=== PATIENT | female | born 1955 | race Caucasian/White ===

== ENCOUNTER 2023-07-12 07:16 | Observation (INO) ==
[~2023-07-12 07:16] MED LIST: Buffered Lidocaine 1% SYRIN 1 ml INTRADERM ONE; Metoclopramide 5 MG/ML VIAL (10 mg) IV PRN; Naloxone 0.4 mg VIAL 0.4 mg/ml 1 ml VIAL IV PRN; Ondansetron 4 mg VIAL 2 MG/ML 2 ml VIAL IV PRN
[2023-07-12 07:51] LABS: Rapid COVID-19 Molecular Undetected (Undetected)
[2023-07-12] MEDS ORDERED: KETAMINE HCL 10 MG/ML 20 ml VIAL (200 MG) ONE (07:57)
[2023-07-12] MEDS ORDERED: Lidocaine 2% PF 5 ML VIAL ONE (07:57)
[2023-07-12] MEDS ORDERED: Propofol 10 MG/ML 20 ML BTL ONE ×2 (07:57→11:51)
[2023-07-12] MEDS ORDERED: Tranexamic Acid 1 GM/100ML BAG 2,000 MG/200 ML BAG IV ONE (08:11)
[2023-07-12] MEDS ORDERED: ceFAZolin 2 GM in NS PREMIX 2 GM/100 ML BAG IVPB ONE (08:11)
[2023-07-12] MEDS: Lactated Ringers 1000 ml BAG 1,000 ML IV SCH ×3 (08:19→15:21)
[2023-07-12] MEDS ORDERED: ROPIVACAINE 5 MG/ML 30 ML BTL (0.5%) ONE ×2 (08:24→08:28)
[2023-07-12] MEDS ORDERED: Dexamethasone IV 4 MG/ML VIAL 1 ml VIAL ONE (08:28)
[2023-07-12] MEDS ORDERED: Midazolam 2 mg/2 ml VIAL 1 mg/ml 2 ml VIAL (2 mg) ONE ×2 (08:28→10:22)
[2023-07-12] MEDS ORDERED: fentaNYL 100 mcg/2 ml 50 MCG/ML VIAL ONE ×2 (08:28→14:23)
[2023-07-12] MEDS ORDERED: Bupivacaine-MPF SPINAL 7.5 MG/ML - 2ML AMP ONE (10:48)
[2023-07-12] MEDS ORDERED: Ondansetron 4 mg VIAL 2 MG/ML 2 ml VIAL ONE (11:03)
[2023-07-12] MEDS ORDERED: Lactulose 30 ml UDC PO PRN (12:04)
[2023-07-12] MEDS ORDERED: Morphine 2 MG/ML SYRINGE IV PRN (12:04)
[2023-07-12] MEDS ORDERED: Magnesium Hydroxide LIQ 30 ML UDC PO PRN (12:04)
[2023-07-12] MEDS ORDERED: Scopolamine 1 mg/72hr PATCH TRANSDERM PRN (12:13)
[2023-07-12] MEDS ORDERED: Fluticasone NASAL SPRAY 50MCG 16 gm SPRAY BTL BOTH NARES PRN (13:35)
[2023-07-12] MEDS: fentaNYL 100 mcg/2 ml 50 MCG/ML VIAL IV PRN ×2 (14:24→14:30)
[2023-07-12] MEDS: ceFAZolin 1 GM ADVAN 1 GM in NS 0.9% 50 ML 50 ML IVPB SCH (20:38)
[2023-07-12] MEDS: Magnesium Hydroxide LIQ 30 ML UDC PO SCH (20:40)
[2023-07-13] MEDS: Lactated Ringers 1000 ml BAG 1,000 ML IV SCH (01:34)
[2023-07-13] MEDS: ceFAZolin 1 GM ADVAN 1 GM in NS 0.9% 50 ML 50 ML IVPB SCH ×2 (04:14→11:31)
[2023-07-13 07:48] LABS: Platelet Count 246 10^3/uL (150-450)
[2023-07-13 07:58] LABS: Hemoglobin 11.2 g/dL (11.5-14.3); Mean Platelet Volume 8.8 fL (7.5-11.2)
[2023-07-13 08:03] LABS: Calcium 8.7 mg/dL (8.6-10.3); Creatinine, Serum 0.66 mg/dL (0.51-0.95); Potassium 4.1 mmol/L (3.5-5.0); eGFR CKD-EPI 94.9 (>60)
[2023-07-13] MEDS: Magnesium Hydroxide LIQ 30 ML UDC PO SCH (08:35)
[2023-07-13] MEDS ORDERED: Vitamin THERAPEUTIC TAB PO SCH (09:00)
[2023-07-13 10:35] VITALS: BP 110/65
== END 2023-07-13 13:40 | disposition home or self-care (01) ==
LOC: SSU 07:16 → SDS 07:16 → EDSTATUS 08:30
PROVIDERS: ADMIT Orthopaedic Surgery Adult Reconstructive Orthopaedic Surgery; ATTEND Orthopaedic Surgery Adult Reconstructive Orthopaedic Surgery